=== PATIENT | male | born 1985 ===

== ENCOUNTER 2020-12-26 23:19 | Emergency (ER) | payer SELFPAY ==
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
[2020-12-27] MEDS ORDERED: TETANUS,DIPH,PERTUSS(ACELL) VACCINE 0.5 ML SYRINGE IM ONE (00:15)
[2020-12-27] MEDS ORDERED: NEOMY 3.5 MG/BACIT 400 UNITS/POLY B 5000 UNITS/GM OINT PACKET TP ONE (00:15)
[2020-12-27 00:58] VITALS: BP 117/72
== END 2020-12-27 00:58 | disposition home or self-care (01) ==
LOC: ED 23:19
DX: S41.151A Open bite of right upper arm, initial encounter (principal); E11.8 Type 2 diabetes mellitus with unspecified complications; W50.3XXA Accidental bite by another person, initial encounter; Y93.89 Activity, other specified; Y92.89 Other specified places as the place of occurrence of the external cause; Y99.8 Other external cause status
CPT/HCPCS: 90471; 90715; 99282